=== PATIENT | male | born 2000 | race Caucasian/White ===

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

== ENCOUNTER → 2021-01-07 | Outpatient (CLI) | payer OTHER ==
[~2021-01-07] MED LIST changes: +AMOXICILLIN500 M2 PO; +CEPHALEXIN500 M1 PO; +PREDNISONE10 MG PO
== END | disposition home or self-care (01) ==
LOC: COVID19 12:44
PROVIDERS: ATTEND Internal Medicine
DX: Z20.822 Contact with and (suspected) exposure to COVID-19 (principal)

== ENCOUNTER 2025-01-25 19:16 | Emergency (ER) | payer OTHER ==
[~2025-01-25] VITALS: Ht 177.8 cm; Wt 72.6 kg
[2025-01-25] MEDS ORDERED: Tetracaine Hydrochloride 0.5% 4 ML BOT OPH ONE (19:45)
[2025-01-25] MEDS ORDERED: LISSAMINE GREEN 1.5 MG STRIP OP ONE (19:45)
[2025-01-25] MEDS ORDERED: Dexamethasone/Tobramycin OPHTHALMIC 2.5 ML BOTTLE OPH ONE (20:05)
== END 2025-01-25 20:25 | disposition home or self-care (01) ==
LOC: ED 19:16
DX: S05.01XA Injury of conjunctiva and corneal abrasion without foreign body, right eye, initial encounter (principal); Z79.899 Other long term (current) drug therapy; W44.8XXA Other foreign body entering into or through a natural orifice, initial encounter; Y93.A6 Activity, grass drills; Y92.89 Other specified places as the place of occurrence of the external cause; Y99.8 Other external cause status